=== PATIENT | male | born 1965 | race Caucasian/White ===

== ENCOUNTER 2018-05-30 12:11 | Emergency (ER) | payer MEDICAID ==
[~2018-05-30] VITALS: Ht 182.9 cm; Wt 114.0 kg
[2018-05-30 12:19] VITALS: BP 125/87
[2018-05-30] MEDS ORDERED: acetaminophen 325mg tablet PO ONE ×2 (12:50)
[2018-05-30] MEDS ORDERED: triamcinolone acetonide 40mg/ml inj IM ONE (13:50)
[2018-05-30] MEDS ORDERED: COLC0.6T69 PO ×2 (13:50→13:58)
== END 2018-05-30 14:21 | disposition home or self-care (01) ==
LOC: ER 12:12
DX: M10.9 Gout, unspecified (principal); M25.522 Pain in left elbow; Z88.8 Allergy status to other drugs, medicaments and biological substances; Z79.899 Other long term (current) drug therapy
CPT/HCPCS: 93971; 96372; 99284; J3301

== ENCOUNTER 2018-12-06 19:16 | Emergency (ER) | payer MEDICAID ==
[~2018-12-06] VITALS: Ht 182.9 cm; Wt 100.0 kg
[~2018-12-06 19:16] MED LIST: COLC0.6T69 PO
[2018-12-06 19:20] VITALS: BP 151/89
[2018-12-06 21:14] LABS: BASOPHILS % (AUTO) 0.3 % (0-1); EOSINOPHILS # (AUTO) 0.3 X10'3 (0-0.9); HEMATOCRIT 50.9 % (42.0-52.0); HEMOGLOBIN 16.3 g/dl (14.0-17.9); LYMPHOCYTES # (AUTO) 3.2 X10'3 (1.1-4.8); LYMPHOCYTES % (AUTO) 23.3 % (21-51); MEAN CORPUSCULAR HEMOGLOBIN 28.1 PG (27.0-31.0); MEAN CORPUSCULAR VOLUME 87.7 FL (78-98); MEAN PLATELET VOLUME 8.3 FL (7.4-10.4); MONOCYTES # (AUTO) 0.8 X10'3 (0-0.9); MONOCYTES % (AUTO) 5.6 % (2-12); NEUTROPHILS # (AUTO) 9.2 X10'3 (1.8-7.7); NEUTROPHILS % (AUTO) 68.8 % (42-75); PLATELET COUNT 284 X10'3 (140-440); RED CELL DISTRIBUTION WIDTH 13.3 % (11.5-14.5); WHITE BLOOD COUNT 13.5 X10'3 (4.5-11.0)
[2018-12-06 21:24] LABS: ALANINE AMINOTRANSFERASE 39 U/L (12-78); ALBUMIN 3.8 G/DL (3.4-5.0); ALKALINE PHOSPHATASE 63 IU/L (46-116); ANION GAP 10 (8-16); ASPARTATE AMINO TRANSFERASE 24 U/L (10-37); BILIRUBIN,TOTAL 0.2 MG/DL (0.1-1.0); BLOOD UREA NITROGEN 27 MG/DL (7-18); BUN/CREATININE RATIO 17.1 (5.4-32.0); CALCIUM 9.1 MG/DL (8.5-10.1); CHLORIDE 102 MMOL/L (99-107); CREATININE 1.58 MG/DL (0.60-1.10); GLUCOSE 93 MG/DL (70-104); SODIUM 140 MMOL/L (135-145); TOTAL CARBON DIOXIDE 27.8 MMOL/L (24-32); TOTAL PROTEIN 7.7 G/DL (6.4-8.2); eGFR 46 ML/MIN
[2018-12-06 21:28] LABS: POTASSIUM 4.5 MMOL/L (3.5-5.1)
[2018-12-06] MEDS ORDERED: HYDR-4353 PO (22:22)
== END 2018-12-06 22:40 | disposition home or self-care (01) ==
LOC: ER 19:17
DX: R51 Headache (principal); H53.8 Other visual disturbances; H57.11 Ocular pain, right eye; M10.9 Gout, unspecified; F12.90 Cannabis use, unspecified, uncomplicated; F17.200 Nicotine dependence, unspecified, uncomplicated
CPT/HCPCS: 36415; 70450; 80053; 85025; 85651; 99284

== ENCOUNTER 2019-08-11 21:07 | Emergency (ER) | payer MEDICAID ==
[~2019-08-11] VITALS: Ht 182.9 cm; Wt 113.6 kg
[2019-08-11 21:09] VITALS: BP 145/85
[2019-08-11] MEDS ORDERED: CEPH-572 PO (23:06)
[2019-08-11] MEDS ORDERED: SULF1TAB49 PO (23:06)
[2019-08-11] MEDS ORDERED: mupirocin 2% ointment 22GM TP STA (23:06)
[2019-08-11] MEDS ORDERED: sulfamethoxazole/trimethoprim DS (800/160mg) tablet PO ONE (23:10)
== END 2019-08-11 23:18 | disposition home or self-care (01) ==
LOC: ER 21:07
DX: L02.413 Cutaneous abscess of right upper limb (principal); M10.9 Gout, unspecified; F17.200 Nicotine dependence, unspecified, uncomplicated; F12.90 Cannabis use, unspecified, uncomplicated; Z88.6 Allergy status to analgesic agent; Z79.899 Other long term (current) drug therapy
CPT/HCPCS: 10060; 99283